=== PATIENT | male | born 2000 | race Caucasian/White ===

== ENCOUNTER 2021-04-17 03:06 | Emergency (ER) | payer OTHER, SELFPAY ==
--- NOTE | ~2021-04-17 | XR_ITS ---
EXAMINATION: XR HAND, RIGHT CLINICAL INFORMATION: Swollen right pinky COMPARISON: None TECHNIQUE: PA, lateral, and oblique views of the right hand. FINDINGS: No acute fracture or dislocation. Soft tissue swelling about the fifth proximal interphalangeal joint. Alignment is anatomic. Joint spaces are maintained. No erosions or soft tissue calcifications. XR/XR hand RT min 3V IMPRESSION: No acute fracture or dislocation.
[2021-04-17 03:09] VITALS: BP 129/71; PULSE 62; RESP 18; TEMP 35.9; O2SAT 100; BMI 21.6
--- NOTE | 2021-04-17 03:37 | ED.EXTPRO ---
HPI - Extremity Problem General Chief complaint: Extremity Injury, Upper Stated complaint: finger inj Time Seen by Provider: 04/17/21 03:37 Source: patient Mode of arrival: ambulatory History of Present Illness HPI Narrative: 20-year-old male presents with playing basketball and having ?jammed his finger? and states that this is the 2nd time within a week. Patient able to move the finger but having difficulty at the PIP. Related Data Allergies Allergy/AdvReac Type Severity Reaction Status Date / Time No Known Allergies Allergy Unverified 06/04/20 16:55 [No Known Allergies*] Review of Systems Review of Systems: Pertinent positives and negatives as stated in HPI 10 point review of systems is otherwise negative. PMFSH Past Medical History Source: nursing notes reviewed Physical Exam Vital Signs: Vital Signs: Last Vital Signs Temp 96.6 F L 04/17/21 03:09 Pulse 62 04/17/21 03:09 Resp 18 04/17/21 03:09 BP 129/71 04/17/21 03:09 Pulse Ox 100 04/17/21 03:09 Body Mass Index 21.6 VITAL SIGNS: Reviewed. GENERAL: Well developed, well nourished, in no acute distress. HEAD: Normocephalic/atraumatic EYES: PERRLA, EOMI EARS: Ext canals without abnormality OROPHARYNX: no oral lesions noted, posterior pharynx clear LUNGS: Normal breath sounds. CARDIOVASCULAR: Regular rate and rhythm ABDOMEN: Soft, non-tender, non-distended with bowel sounds. RIGHT FIFTH DIGIT: Noted swelling and tenderness on palpation at the PIP, good capillary refill, sensation intact, no deformity noted NEUROLOGIC: Alert and oriented x 4. Course Course Course Narrative: 20-year-old male with history and clinical presentation after review of imaging no evidence of fracture or dislocation and consistent with a ?jammed finger?. Patient was discharged with combination analgesics and ai taping. Discharge Plan Discharge Clinical Impression: Finger sprain Patient Disposition: Home, Self-Care Instructions: Finger Sprain (ED) Additional Instructions: 1. Recommend taking [id number]-zizepci Tylenol/ibuprofen as needed for pain control. Also utilize ice for further pain control. 2. Recommend ai taping for the next 1 week and avoid playing basketball for that time frame to allow for healing. 3. Follow-up with primary care provider in the next 2-3 days for re-evaluation. Return to the ER for acute worsening of symptoms. Referrals: Physician,None [Primary Care Provider] - 2 days
[2021-04-17] MEDS: Ibuprofen 400 MG TABLET PO (03:47)
[2021-04-17] MEDS: Acetaminophen 325 MG TABLET 975 MG PO (03:47)
== END 2021-04-17 04:24 | disposition home or self-care (01) ==
LOC: HO.ED 03:44
PROVIDERS: Emergency Provider Student in an Organized Health Care Education/Training Program
DX: S63.616A Unspecified sprain of right little finger, initial encounter (principal); W22.8XXA Striking against or struck by other objects, initial encounter; Y93.67 Activity, basketball; Y92.310 Basketball court as the place of occurrence of the external cause; Y99.9 Unspecified external cause status
CPT/HCPCS: 73130; 99283

== ENCOUNTER 2022-08-22 23:14 | Emergency (ER) | payer MEDICAID, SELFPAY ==
--- NOTE | 2022-08-22 | ECG_ITS ---
Test Reason : CP Blood Pressure : / mmHG Vent. Rate : 054 BPM Atrial Rate : 054 BPM P-R Int : 186 ms QRS Dur : 096 ms QT Int : 368 ms P-R-T Axes : 069 090 060 degrees QTc Int : 348 ms Sinus bradycardia Rightward axis Borderline ECG No previous ECGs available Referred By: Generic ED Physician Electronically Signed By:PHILLIP BONILLA MD
--- NOTE | ~2022-08-22 | XR_ITS ---
EXAMINATION: XR CHEST CLINICAL INFORMATION: Chest pain COMPARISON: None TECHNIQUE: Frontal view of the chest was obtained. FINDINGS: No significant abnormality is noted involving the heart, lungs, mediastinum, bony thorax or soft tissues. XR/XR chest 1V IMPRESSION: Unremarkable examination.
[2022-08-22 23:17] VITALS: BP 123/79; PULSE 625; RESP 16; TEMP 36.7; O2SAT 99; BMI 20.9
[2022-08-22 23:49] LABS: Basophils Absolute Auto 0.1 X10*3/uL (0.0-0.2); Basophils Percent Auto 0.6 % (0-2); Eosinophils Absolute Auto 0.2 X10*3/uL (0.0-0.4); Eosinophils Percent Auto 2.2 % (0-4); Hematocrit 40.8 % (42.0-52.0); Imm Gran Abs Auto 0.02 X10*3/uL (0.00-0.03); Imm Gran Pct Auto 0.2 % (0.0-0.4); Lymphocytes Absolute Auto 2.6 X10*3/uL (1.2-4.9); Lymphocytes Percent Auto 32.5 % (20-40); MANUAL DIFF FLAG NO; Mean Corpuscular HGB Conc 34.3 g/dl (31.0-36.0); Mean Corpuscular Hemoglobin 29.7 pg (27.0-33.0); Mean Corpuscular Volume 86.4 fL (80.0-98.0); Mean Platelet Volume 9.9 fL (9.4-12.4); Monocytes Absolute Auto 0.8 X10*3/uL (0.1-1.2); Monocytes Percent Auto 9.8 % (2-11); Neutrophils Absolute Auto 4.4 x10*3/uL (2.0-8.3); Neutrophils Percent Auto 54.7 % (45-73); Platelet Count 232 X10*3/uL (160-400); Red Blood Count 4.72 X10*6/uL (4.60-5.80); Red Cell Distribution Width 11.8 % (11.0-16.0); White Blood Count 8.1 X10*3/uL (4.8-10.8)
[2022-08-23 00:10] LABS: Alanine Aminotransferase 9 U/L (0-40); Albumin Level 4.6 g/dL (3.5-5.0); Alkaline Phosphatase 40 U/L (39-117); Anion Gap 13 (12-20); Aspartate Amino Transferase 12 U/L (5-37); Blood Urea Nitrogen 16 mg/dL (9-16); Calcium 9.7 mg/dL (8.4-10.2); Carbon Dioxide 25 mmol/L (22-29); Chloride 107 mmol/L (96-108); Creatinine Clr Calc Pharmacy 113.5; Estimated Glomerular Filt Rate > 60; Glucose Random 88 mg/dL (60-115); Potassium 4.1 mmol/L (3.3-5.1); Sodium 141 mmol/L (135-145); Total Protein 6.9 g/dL (6.5-8.0)
[2022-08-23 00:14] LABS: Troponin-I High Sensitivity < 3.5 ng/L (<3.5-35.0)
[2022-08-23 01:15] VITALS: BP 122/69; PULSE 76; RESP 16; TEMP 36.7; O2SAT 97
[2022-08-23 02:09] LABS: Bilirubin Total 0.3 mg/dL (0.0-1.0)
--- NOTE | 2022-08-23 02:33 | ED_ITS ---
HPI - Chest Pain General Chief Complaint: Chest Pain Stated Complaint: Chest Pain Time Seen by Provider: 08/23/22 02:33 Source: patient and family Mode of arrival: ambulatory Limitations: no limitations History of Present Illness HPI narrative: 21-year-old male came in for evaluation of chest pain. Started since yesterday morning after he woke up from sleep, describes the pain as a constant mid chest and left-sided chest pain since yesterday, pain is worsening by taking a deep breath, nothing improving the pain, no coughing or sneezing or shortness of breath, no recent viral sickness, no recent travel, no lower extremity swelling or tenderness, no personal or family history of PE or DVT. Related Data Allergies Allergy/AdvReac Type Severity Reaction Status Date / Time No Known Allergies Allergy Unverified 06/04/20 16:55 [No Known Allergies*] Review of Systems Review of Systems: All other systems are reviewed and are negative Constitutional: Reports as per HPI and Reports no additional constitutional complaints Eyes: Reports as per HPI and Reports no additional eye complaints Reports system reviewed and no additional complaints, except as documented Cardiovascular: Reports as per HPI and Reports no additional cardiovascular complaints Respiratory: Reports as per HPI and Reports no additional respiratory complaints Gastrointestinal: Reports as per HPI and Reports no additional gastrointestinal complaints Genitourinary: Reports no additional female genitourinary complaints Musculoskeletal: Reports no additional musculoskeletal complaints Skin/Breast: Reports system reviewed and no additional complaints, except as docu Psychiatric: Reports no additional psychiatric complaints Endocrine: Reports no additional endocrine complaints Hematologic/Lymphatic: Reports no additional hematologic/lymphatic complaints Allergic/Immunologic: Reports no additional allergic/immunologic complaints Reports system reviewed and no additional complaints, except as documented and Reports Abnormal speech present [facility] Social History Social History Advance Directives: No Advance Directives Information Provided: No Physical Exam Vital Signs: Vital Signs: Last Vital Signs Temp 98.0 F 08/23/22 01:15 Pulse 76 08/23/22 01:15 Resp 16 08/23/22 01:15 BP 122/69 08/23/22 01:15 Pulse Ox 97 08/23/22 01:15 O2 Del Method 08/23/22 01:15 BMI result Body Mass Index 20.9 Vital signs have been reviewed as appeared to be correct. Blood pressure normal. Heart rate normal. Respiration rate normal. Temperature normal. Oxygen saturation normal. Appearance: Alert. Oriented X3. No acute distress. Head: Normal external exam. Normocephalic. Atraumatic. No Neville signs noted. No raccoon eyes noted Eyes: PERRLA. EOMI. Conjunctiva and sclera normal. Eyelids normal. ENT: TM's Normal. Pharynx normal. Uvula midline. Moist mucous membranes. No trismus noted. No drooling noted. No muffled voice noted. Neck: Normal inspection. Neck supple. FROM. No adenopathy. Thyroid Normal. No meningeal signs. No neck mass noted. CVS: Normal heart rate and rhythm. Heart sound normal. No murmurs noted. Pulses normal throughout. Respiratory: No respiratory distress. Painless inspiration. Breath sounds normal. No wheezes/rales/rhonchi noted. Chest nontender. No accessory muscle usage noted or decreased air movement noted. Abdomen: Soft and nontender. Bowel sounds normal in all 4 quadrants. No distention noted. No organomegaly noted. No visible injury noted. Back: No CVA tenderness. Full range of motion noted. Skin: Skin warm and dry. Normal skin color. Normal skin turgor. No rashes/lesions/lacerations noted. Extremities: No lower extremity edema. Extremities exhibit normal range of motion. Extremities nontender. Neuro: Oriented X 3. Cranial nerve exam: II-XII are grossly intact No motor deficit. No sensory deficit. Reflexes normal. Course Course Course Narrative: [age] were year old male came in for evaluation of pleuritic chest pain, no risk for PE or DVT. No family history of young in the family. Exam and history is consistent with pleurisy patient was instructed to use ibuprofen if needed. Medical Decision Making Medical Decision Making Differential Diagnoses: Differential diagnosis Differential Diagnosis: The differential diagnosis associated with the patient?s presentation includes: ACS/pleurisy/costochondritis Independent interpretation of EKG, rhythm strip, radiology study: Independent interp EKG,rhythm strip, radiology study I performed an independent interpretation of the: EKG My interpretation is sinus bradycardia, normal intervals, no ST-T changes, no old EKG to compare. Discharge Plan Discharge Clinical Impression: Atypical chest pain, Pleurisy Patient Disposition: Home, Self-Care Instructions: Pleurisy (ED) Stand Alone Forms: Work/School Release
--- NOTE | 2022-08-23 02:49 | PC.NURSE ---
Assumed care of patient.
--- NOTE | 2022-08-23 02:56 | PC.NURSE ---
Patient states that chest pain has resolved and refused ibuprofen ordered (NOV).
--- NOTE | 2022-08-23 03:12 | PC.NURSE ---
Discharge instructions given and explained to patient. Patient ambulates safely and independently. No apparent distress.
== END 2022-08-23 03:18 | disposition home or self-care (01) ==
PROVIDERS: Emergency Provider Emergency Medicine
DX: R07.89 Other chest pain (principal); R09.1 Pleurisy; Z79.899 Other long term (current) drug therapy
CPT/HCPCS: 36415; 71045; 80053; 84484; 85025; 93005; 99283; 99284

== ENCOUNTER 2023-03-02 18:07 | Emergency (ER) | payer MEDICAID, SELFPAY ==
--- NOTE | ~2023-03-02 | XR_ITS ---
EXAMINATION: XR CHEST CLINICAL INFORMATION: Difficulty breathing COMPARISON: Chest x-ray 08/23/2022 TECHNIQUE: 2 views of the chest were obtained. FINDINGS: No significant abnormality is noted involving the heart, lungs, mediastinum, bony thorax or soft tissues. XR/XR chest 2V IMPRESSION: Unremarkable examination.
[2023-03-02 18:10] VITALS: BP 106/60; PULSE 87; RESP 20; TEMP 36.7; O2SAT 99; BMI 21.5
--- NOTE | 2023-03-02 18:10 | ED.BACK ---
HPI - Back Pain/Injury General Chief Complaint: Back Pain/Injury Stated Complaint: pulled muscle in back making it hard to breathe Time Seen by Provider: 03/02/23 19:49 Source: patient Mode of arrival: ambulatory History of Present Illness HPI Narrative: 22-year-old male presents with having a twisting motion while playing basketball and suddenly developing pain at the left inferior border of the scapula but denies any falls or physical collision and states that the pain increases with deep inspiration but denies any numbness or tingling into the left upper extremity denies any dizziness, shortness of breath. Related Data Previous Rx's Medication Instructions Recorded cyclobenzaprine 5 mg tablet 5 mg PO BEDTIME PRN muscle spasm 03/02/23 #4 tabs ketorolac 10 mg tablet 10 mg PO Q6H PRN pain 5 days #20 03/02/23 tabs Allergies Allergy/AdvReac Type Severity Reaction Status Date / Time No Known Allergies Allergy Unverified 06/04/20 16:55 [No Known Allergies*] Review of Systems Review of Systems: Pertinent positives and negatives as stated in HPI PMFSH Past Medical History Source: nursing notes reviewed Social History Social History Alcohol intake: current Alcohol intake frequency: holidays/special occasions only Smoked in Last 30 Days: No Use of substances other than those prescribed or required for medical reasons: Yes Substance Use Type: Marijuana Substance Use Frequency: Daily Advance Directives: No Advance Directives Information Provided: No Physical Exam Vital Signs: Vital Signs: Last Vital Signs Temp 97.9 F 03/02/23 19:53 Pulse 72 03/02/23 19:53 Resp 20 03/02/23 19:53 BP 130/67 03/02/23 19:53 Pulse Ox 100 03/02/23 19:53 O2 Del Method Room Air 03/02/23 19:53 BMI result Body Mass Index 21.5 VITAL SIGNS: Reviewed. GENERAL: Well developed, well nourished, in no acute distress. HEAD: Normocephalic/atraumatic EYES: PERRLA, EOMI EARS: Ext canals without abnormality NOSE: Nares patent bilateral OROPHARYNX: no oral lesions noted, posterior pharynx clear NECK: Supple, no adenopathy LUNGS: Normal breath sounds. No adventitious sounds or accessory muscle use. SpO2<100> CARDIOVASCULAR: Regular rate and rhythm without noted murmurs ABDOMEN: Soft, non-tender, non-distended with bowel sounds. BACK: Palpation over the left scapula demonstrates an obvious muscle spasm noted at the mid inferior border of the scapula MUSCULOSKELETAL: No tenderness, deformities, or effusions noted on gross inspection. EXTREMITIES: No cyanosis, clubbing or edema. SKIN: Inspection of the skin reveals no rashes NEUROLOGIC: Alert and oriented x 4. Strength and sensation to light touch were grossly intact x 4. Course Course Course Narrative: This is a rapid medical exam. Deferred additional HPI, ROS, PE to primary provider. 22 yo male with history of asthma here with left upper back pain which occurred while he was playing basketball (twisting injury). No fall to the ground. VSS 1900-Now having diff breathing. LS CTA. Saturation 99%. Will check CXR, give motrin and re-assess. Medications Administered Discontinued Medications Generic Name Dose Route Start Last Admin Trade Name Freq PRN Reason Stop Dose Admin Acetaminophen 975 mg 03/02/23 19:40 03/02/23 20:07 Acetaminophen 325 Mg Tablet PO 03/02/23 19:41 975 mg ONCE ONE Administration Ibuprofen 600 mg 03/02/23 19:03 03/02/23 19:05 Ibuprofen 600 Mg Tablet PO 03/02/23 19:04 600 mg ONCE ONE Administration Lidocaine 1 patch 03/02/23 19:40 03/02/23 20:07 Lidocaine 4 % Patch Adh..Patch TRANSDERMA 03/02/23 19:41 1 patch ONCE ONE Administration Protocol Medical Decision Making Medical Decision Making [facility] Narrative: 22-year-old male who presents for muscle spasm with acute onset of pain while playing basketball, combination analgesics as well as anti spasmodic stop and lidocaine patch were provided with good results on re-evaluation. My interpretation of the chest x-ray is in agreement with radiology's impression. My interpretation is muscle spasm/strain. Differential Diagnosis Please see the discussion above Radiology Impression Radiologist Impression: My interpretation is in agreement with radiology's impression. Discharge Plan Discharge Clinical Impression: Spasm of thoracic back muscle Patient Disposition: Home, Self-Care Instructions: Muscle Spasm (ED), Back Pain (ED) Additional Instructions: 1. Tylenol 1000 mg, orally, every 6 hours as needed for pain control. Do not exceed 4000 mg within 24 hours. 2. Lidocaine patch, apply to area of maximal tenderness as directed on the outside packaging. 3. Gentle massage and stretching can greatly reduce the amount of time for improvement. 4. Follow-up with primary care provider Prescriptions: New cyclobenzaprine 5 mg tablet 5 mg PO BEDTIME PRN (Reason: muscle spasm) Qty: 4 0RF ketorolac 10 mg tablet 10 mg PO Q6H PRN (Reason: pain) 5 Days Qty: 20 0RF Rx Instructions: Patient received Toradol in the emergency room.
--- NOTE | 2023-03-02 19:03 | PC.NURSE ---
Pt reporting difficulty breathing in waiting room, pulse ox 99% on RA. Lung sounds clear at this time.
[2023-03-02] MEDS: Ibuprofen 600 MG TABLET PO (19:05)
[2023-03-02 19:53] VITALS: BP 130/67; PULSE 72; RESP 20; TEMP 36.6; O2SAT 100
[2023-03-02] MEDS: Lidocaine 4 % Patch ADH..PATCH 1 PATCH TRANSDERMA (20:07)
[2023-03-02] MEDS: Acetaminophen 325 MG TABLET 975 MG PO (20:07)
[2023-03-02] MEDS: Ketorolac Tromethamine 15 MG/ML VIAL IM (21:12)
[2023-03-02] MEDS: Cyclobenzaprine HCl 5 MG TABLET PO (21:12)
== END 2023-03-02 21:22 | disposition home or self-care (01) ==
PROVIDERS: Emergency Provider Student in an Organized Health Care Education/Training Program
DX: M62.830 Muscle spasm of back (principal); R07.81 Pleurodynia; R06.02 Shortness of breath
CPT/HCPCS: 71046; 96372; 99284; J1885